=== PATIENT | female | born 1960 | race Caucasian/White ===

== ENCOUNTER 2025-01-28 14:17 | Emergency (ER) | payer MEDICARE, SELFPAY ==
[2025-01-28 14:22] VITALS: BP 149/72; PULSE 85; RESP 17; TEMP 36.7; O2SAT 98; BMI 25.2
[2025-01-28] MEDS: orphenadrine 30 mg/mL Inj 2 mL 60 MG IM (15:05)
[2025-01-28] MEDS: methylPREDNISolone sod succ 125 mg/2 mL INJ IVP (15:05)
--- NOTE | 2025-01-28 15:37 | W.ED.BACK ---
HPI - Back Pain/Injury General: Chief Complaint: Back Pain/Injury Stated Complaint: pain lt lower back Time Seen by Provider: 01/28/25 14:34 History of Present Illness: 65-year-old female presents emergency room with complaint of low back pain. She been doing some lifting. Over the last 3 days progressively having more low back discomfort. She states it is actually better when she is up and walking worse when she lays flat she denies any dysuria urgency or frequency no direct trauma or injury. No fecal incontinence no urinary retention. No saddle paresthesias Associated symptoms: Deny abdominal pain, chills, dysuria, fever(s) or urinary urgency Related Data Previous Rx's ?Medication ?Instructions ?Recorded methylprednisolone 4 mg tablets in See Rx Instructions PO .COMPLEX 01/28/25 a dose pack (Medrol (Deejay)) #21 ea tizanidine 4 mg tablet 4 mg PO Q6H PRN muscle spasticity 01/28/25 #20 tabs Allergies Allergy/AdvReac Type Severity Reaction Status Date / Time No Known Allergies Allergy Verified 01/28/25 14:27 Review of Systems Const: Denies: fever(s) or chills Card: Denies: chest pain Resp: Denies: dyspnea GI: Denies: abdominal pain : Denies: dysuria, urinary frequency or urinary urgency Musc: Reports: back pain; Denies: neck pain or extremity pain Skin/Breast: Denies: rash Physical Exam Const: GENERAL APPEARANCE: cooperative ORIENTATION/CONSCIOUSNESS: Yes awake, Yes oriented to person, Yes oriented to place and Yes oriented to time HENMT: COMMON NORMALS: normocephalic, atraumatic and hearing grossly normal bilaterally HEAD & SCALP: normocephalic and atraumatic Resp: COMMON NORMALS: normal respiratory effort, No retractions, No use of accessory muscles and clear to auscultation bilaterally AUSCULTATION: clear to auscultation bilaterally Cardio: COMMON NORMALS: regular rate, regular rhythm and No murmurs present (Cardio) RATE: regular rate RHYTHM: regular rhythm GI: COMMON NORMALS: Soft to palpation and No hepatosplenomegaly present AUSCULTATION: Yes normoactive bowel sounds PALPATION: Yes Soft to palpation, No Tenderness to palpation present (GI), No Guarding due to palpation present (GI) and Yes No hepatosplenomegaly present Extremity: COMMON NORMALS: normal to inspection, capillary refill normal, no clubbing, cyanosis or edema, no calf tenderness and no pedal edema OTHER: Straight leg raising negative bilaterally with dorsal plantarflexion 5 out of 5 sensation lower extremities normal Neuro: SENSORIUM/ORIENTATION: Yes oriented to person, Yes oriented to place and Yes oriented to time Skin: COMMON NORMALS: no rashes or lesions noted GENERAL SKIN EXAM: no rashes or lesions noted Course Vital Signs: Vital signs: Vital Signs Temperature 98.0 F 01/28/25 14:22 Pulse Rate 85 01/28/25 14:22 Respiratory Rate 17 01/28/25 14:22 Blood Pressure 149/72 01/28/25 14:22 Pulse Oximetry 98 01/28/25 14:22 Oxygen Delivery Me thod Room Air 01/28/25 14:22 MDM - Back Pain/Injury Medical Decision Making No red flag symptoms this time patient improvement with anti-inflammatories steroids and muscle relaxers given in the emergency room will discharge home with tizanidine and steroid taper follow-up with primary care. Low back pain precautions and exercises given at discharge Medical Records I reviewed the patient's medical records. No radiology studies performed this visit Discharge Plan Discharge Patient Disposition: Home Clinical Impression: Strain of lumbar region Condition: Stable Prescriptions: New tizanidine 4 mg tablet 4 mg PO Q6H PRN (Reason: muscle spasticity) Qty: 20 0RF Rx Instructions: do not exceed 3 doses per 24 hrs methylprednisolone [Medrol (Deejay)] 4 mg tablets,dose pack See Rx Instructions .ROUTE .COMPLEX Qty: 21 0RF Rx Instructions: orally per package directions Discharge Orders: Discharge ED (Routine); Ordered 01/28/25 Ordered By: Juaquin Boss Discharge Diet: Usual diet Discharge Activity: Increase activity as tolerated Patient Instructions: Acute Low Back Pain (ED), Lower Back Exercises (ED), Opioid Safety, Pain Management, Patient Portal & Benjamin Instructions Activity Restrictions/Additional Instructions: Thank you for choosing [facility] for your healthcare needs today. It is very important that you follow up as instructed or that you return to the Emergency Department should you have concerns or if your condition changes or worsens in any way. Emergency department visits are focused on emergent conditions, in some cases you may require further evaluation on an outpatient basis. You were seen in the emergency room with complaints of low back pain. Improved with medications given. You are discharged home with steroid taper tizanidine to use as needed. Follow-up with your primary care doctor if symptoms persist they can reevaluate and discuss different treatment options such as further advanced imaging or physical therapy if felt appropriate. (Please note that included in your discharge packet is information concerning opioid safety and pain management. This information is given to all patients were discharged from the ER regardless of their discharge diagnosis or the medicines they usually take or are prescribed.) Print Language: Portuguese Coding Level of Care Code ED Director Trade for Chip Pulido
== END 2025-01-28 15:44 | disposition home or self-care (01) ==
PROVIDERS: Emergency Provider Family Medicine
DX: S39.012A Strain of muscle, fascia and tendon of lower back, initial encounter (principal); X50.9XXA Other and unspecified overexertion or strenuous movements or postures, initial encounter
CPT/HCPCS: 96374; 96375; 99284; J1885; J2360; J2919